=== PATIENT | female | born 1950 | race Two or more races ===

== ENCOUNTER 2016-08-26 08:45 | Emergency (ER) | payer OTHER ==
--- NOTE | 2016-08-26 08:52 | UCPHY ---
H & P Time Seen by Provider: 08/26/16 08:49 Patient Type: New HPI/ROS: 66-year-old female presents complaining of cough for approximately 2 weeks. Past Medical/Surgical History: 66-year-old female presents complaining of cough, runny nose, fatigue for several weeks. After a trip to [place]. Recently while driving [place] she has had nausea , no vomiting and diarrhea as well. This morning her cough began again and she is here to be evaluated for this intermittent illness of approximately 4 weeks duration. She was treated around [place] time with a Z- Herminio for possible bronchitis. She smokes daily approximately half a pack however has not been feeling well recently and has not smoked for couple days. Review of systems As per HPI General positive fever positive chills positive fatigue HEENT no eye pain no eye discharge. No eye redness, no sore throat Respiratory positive cough positive shortness of breath Cardiac no chest pain, no peripheral edema GI no abdominal pain, positive diarrhea positive nausea, no vomiting no flank pain, no hematuria, no dysuria Musculoskeletal no myalgias, no joint pain Heme no easy bruising, no easy bleeding Endo no polyuria, no polydipsia Skin no rashes, no pruritus Neuro no syncope, no dizziness, no headaches Psych is no suicidal ideation, no homicidal ideation Social History: Alcohol socially, denies drug use Currently [place] a [place] vacation in a motor home for several weeks Smoking Status: Current every day smoker Constitutional: Initial Vital Signs Temperature (C) 36.6 C 08/26/16 08:49 Heart Rate 80 08/26/16 08:49 Respiratory Rate 18 08/26/16 08:49 Blood Pressure 177/90 H 08/26/16 08:49 O2 Sat (%) 97 08/26/16 08:49 O2 Delivery Mode Room Air Allergies/Adverse Reactions: Penicillins Allergy (Verified 08/26/16 09:04) Home Medications: Medication Instructions Recorded Albuterol Hfa Anes Only [Proair 2 puffs IH Q4 PRN #1 mdi 08/26/16 Hfa Icu (*)] Doxycycline Hyclate 100 mg PO BID 10 Days 08/26/16 Fish Oil 08/26/16 GABAPENTIN 08/26/16 Hydrochlorothiazide 08/26/16 Hyoscyamine 08/26/16 Lisinopril 08/26/16 Loperamide 08/26/16 Multi-Day Vitamins 08/26/16 NAPROXEN SODIUM 08/26/16 Nicotine [Nicotine Patch] 1 each TD DAILY #30 patch 08/26/16 Omeprazole 08/26/16 Pravastatin Sodium 08/26/16 traMADol 08/26/16 Medical Decision Making - Diagnostics Imaging: Chest x-ray consistent with bronchitis Question right lower lobe early infiltrate ED Course/Re-evaluation: Patient seen and evaluated for cough, shortness breath, nausea , diarrhea Differential diagnosis Bronchitis, influenza, pneumonia, gastroenteritis Physical exam remarkable for lungs clear to auscultation, no rash, relatively healthy appearing 66-year-old female Impression Bronchitis, possible early right lower lobe infiltrate Mild dehydration Plan Doxycycline 100 mg p.o. twice daily times 10 days Albuterol MDI Nicotine patch Patient was given 1 L IV normal saline and ondansetron 4 mg in urgent care with complete relief of her nausea Discussed results of laboratories as well as chest x-ray and plan for her care with her permission with her daughter who is a hospitalist at [facility] [place]. - Data Points Laboratory Results: Laboratory Results 08/26/16 09:30 08/26/16 09:30 08/26/16 09:30 WBC 9.41 10^3/uL (3.80-9.50) RBC 4.05 L 10^6/uL (4.18-5.33) Hgb 13.3 g/dL (12.6-16.3) Hct 38.2 % (38.0-47.0) MCV 94.3 fL (81.5-99.8) MCH 32.8 pg (27.9-34.1) MCHC 34.8 g/dL (32.4-36.7) RDW 14.6 % (11.5-15.2) Plt Count 334 10^3/uL (150-400) MPV 10.7 fL (8.7-11.7) Neut % (Auto) 68.6 % (39.3-74.2) Lymph % (Auto) 24.8 % (15.0-45.0) Bailey % (Auto) 5.4 % (4.5-13.0) Eos % (Auto) 0.3 L % (0.6-7.6) Baso % (Auto) 0.5 % (0.3-1.7) Nucleat RBC Rel Count 0.0 % (0.0-0.2) Absolute Neuts (auto) 6.45 10^3/uL (1.70-6.50) Absolute Lymphs (auto) 2.33 10^3/uL (1.00-3.00) Absolute Monos (auto) 0.51 10^3/uL (0.30-0.80) Absolute Eos (auto) 0.03 10^3/uL (0.03-0.40) Absolute Basos (auto) 0.05 10^3/uL (0.02-0.10) Absolute Nucleated RBC 0.00 10^3/uL (0-0.01) Immature Gran % 0.4 % (0.0-1.1) Immature Gran # 0.04 10^3/uL (0.00-0.10) PT 12.9 SEC (12.0-15.0) INR 0.99 (0.83-1.16) APTT 26.1 SEC (23.0-38.0) D-Dimer 0.43 ug/mLFEU (0.00-0.50) Sodium 141 mEq/L (134-144) Potassium 4.2 mEq/L (3.5-5.2) Chloride 107 mEq/L (97-110) Carbon Dioxide 20 L mEq/l (22-31) Anion Gap 14 mEq/L (8-16) BUN 16 mg/dL (7-23) Creatinine 0.6 mg/dL (0.6-1.0) Estimated GFR > 60 Glucose 131 H mg/dL (70-100) Calcium 10.1 mg/dL (8.5-10.4) Total Bilirubin 0.9 mg/dL (0.1-1.4) AST 22 IU/L (14-46) ALT 31 IU/L (9-52) Alkaline Phosphatase 117 IU/L (38-126) Total Protein 7.8 g/dL (6.3-8.2) Albumin 4.3 g/dL (3.5-5.0) Lipase 48.0 IU/L (23-300) Medications Given: Discontinued Medications Sodium Chloride (Ns) 1,000 mls @ 0 mls/hr IV ONCE ONE PRN Reason: Wide Open Stop: 08/26/16 09:18 Last Admin: 08/26/16 09:30 Dose: 1,000 mls Ondansetron HCl (Zofran) 4 mg IVP EDNOW ONE Stop: 08/26/16 09:18 Last Admin: 08/26/16 09:36 Dose: 4 mg Departure - Departure Disposition: Home, Routine, Self-Care Clinical Impression: Bronchitis, Dehydration Condition: Good Instructions: Acute Bronchitis (ED), COPD (Chronic Obstructive Pulmonary Disease) (ED), How to Stop Smoking (ED) Referrals: OUT OF STATE,. [Primary Care Provider] - As per Instructions Prescriptions: Doxycycline Hyclate 100 mg PO BID 10 Days Nicotine [Nicotine Patch] 1 each TD DAILY #30 patch Albuterol Hfa Anes Only [Proair Hfa Icu (*)] 2 puffs IH Q4 PRN #1 mdi PRN Reason: Cough, Severe - PQRS PQRS Measurement: 134: Depression screening and followup, PRIME MD-PHQ2 (12 years and older) Over the last 2 weeks, how often have you been bothered by any of the following problems? 1. Feeling down, depressed, or hopeless? 2. Little interest or pleasure in doing things? Patient answered no to both 1 and 2 130: Documentation of medications. Reviewed all patient medications, doses, route and frequency. 226: Do you smoke? No. 47: 65 and older: Advanced care planning. Patient designates surrogate decision maker as spouse.. [Patient has advanced directive.] 51: 18 years old and older with diagnosis of COPD, spirometry performance. [Patient has no history of COPD 52: 18 years old and older with COPD and symptoms of COPD or FEV1<60% predicted prescribed a B Agonist. [Spirometry not performed; equipment not available.]
[2016-08-26 09:04] VITALS: TEMP 97.9
[2016-08-26] MEDS ORDERED: NS 1,000 ML IV ONE (09:17)
[2016-08-26] MEDS ORDERED: ONDANSETRON 4 MG/2 ML VIAL IVP ONE (09:17)
--- NOTE | 2016-08-26 09:30 | DX ---
Chest, PA Upright and Lateral Views August 26, 2016 at 9:02 a.m. Clinical History: 66-year-old female with a cough and generalized malaise for one month. Comparison Study: None. Findings: The lungs are hyperexpanded, and there is mild central perihilar bronchial wall thickening. The above features may reflect a virally-mediated bronchitis/bronchiolitis, although reactive airway s' disease and/or a component of COPD are not excluded. There is no convincing evidence of a focal in filtrate. There is no pleural effusion, peripheral interstitial edema, or pneumothorax. The trachea i s midline. The osseous structures are age-appropriate. Impression: Lung hyperexpansion with perihilar bronchitis, but no convincing focal infiltrate.
[2016-08-26 09:32] LABS: % IMMATURE GRANULYOCYTES 0.4 % (0.0-1.1); ABSOLUTE IMMATURE GRANULOCYTES 0.04 10^3/uL (0.00-0.10); ADD DIFF? NO; ADD MORPH? NO; ADD SCAN? NO; ATYPICAL LYMPHOCYTE FLAG 10 (0-99); FRAGMENT RBC FLAG 20 (0-99); HEMATOCRIT 38.2 % (38.0-47.0); HEMOGLOBIN 13.3 g/dL (12.6-16.3); LEFT SHIFT FLG 0 (0-99); LIPEMIA HEMOLYSIS FLAG 90 (0-99); MEAN CELL HEMOGLOBIN 32.8 pg (27.9-34.1); MEAN CELL HEMOGLOBIN CONCENTR. 34.8 g/dL (32.4-36.7); MEAN CELL VOLUME 94.3 fL (81.5-99.8); MEAN PLATELET VOLUME 10.7 fL (8.7-11.7); PLATELET CLUMPS FLAG 0 (0-99); PLATELET COUNT 334 10^3/uL (150-400); RED BLOOD CELL COUNT 4.05 10^6/uL (4.18-5.33); RED CELL DISTRIBUTION WIDTH 14.6 % (11.5-15.2)
[2016-08-26 09:44] LABS: INR 0.99 (0.83-1.16); PROTIME(PATIENT) 12.9 SEC (12.0-15.0)
[2016-08-26 09:45] LABS: APTT 26.1 SEC (23.0-38.0)
[2016-08-26 09:47] LABS: ALANINE AMINOTRANSFERASE 31 IU/L (9-52); ALBUMIN 4.3 g/dL (3.5-5.0); ALKALINE PHOSPHATASE 117 IU/L (38-126); ANION GAP 14 mEq/L (8-16); ASPARTATE AMINOTRANSFERASE 22 IU/L (14-46); BILIRUBIN,TOTAL 0.9 mg/dL (0.1-1.4); CALCIUM 10.1 mg/dL (8.5-10.4); CARBON DIOXIDE 20 mEq/l (22-31); CHLORIDE 107 mEq/L (97-110); CREATININE 0.6 mg/dL (0.6-1.0); GLOMERULAR FILTRATION RATE > 60; GLUCOSE 131 mg/dL (70-100); POTASSIUM 4.2 mEq/L (3.5-5.2); SODIUM 141 mEq/L (134-144); TOTAL PROTEIN 7.8 g/dL (6.3-8.2)
[2016-08-26 10:08] VITALS: BP 138/68; PULSE 82; RESP 20; O2SAT 93
== END 2016-08-26 10:23 | disposition home or self-care (01) ==
LOC: CED 08:45
DX: J20.9 Acute bronchitis, unspecified (principal); E86.0 Dehydration; Z72.0 Tobacco use
CPT/HCPCS: 71020; 96361; 96374; G0463; J2405; 80053-PO; 83690-PO; 85025-PO; 85378-PO; 85610-PO; 85730-PO; 99202-PO